=== PATIENT | female | born 1930 | race Hispanic/Latino ===

== ENCOUNTER 2018-01-02 08:33 | Emergency (ER) | payer MEDICARE, BC ==
--- NOTE | 2018-01-02 08:42 | ED PDOC ---
HPI: General Adult Time Seen by Provider: 01/02/18 08:37 History Per: Patient Onset/Duration Of Symptoms: Unknown Current Symptoms Are (Timing): Still Present Severity: Moderate Additional Complaint(s): Generalized weakness , found to have Hgb 7.5 as outpt. Denies melena, hematochezia or hematemesis. Denies fever. Past Medical History Vital Signs: Last Vital Signs Temp 98.3 F 01/02/18 08:40 Pulse 88 01/02/18 08:40 Resp 16 01/02/18 08:40 BP 138/78 01/02/18 08:40 Pulse Ox 99 01/02/18 08:40 - Medical History PMH: Anemia - Surgical History Surgical History: CABG - Family History Family History: States: Unknown Family Hx - Allergies Allergies/Adverse Reactions: Allergies Allergy/AdvReac Type Severity Reaction Status Date / Time Unobtainable Allergy Verified 01/02/18 08:38 Review of Systems ROS Statement: Except As Marked, All Systems Reviewed And Found Negative Physical Exam - Reviewed Nursing Documentation Reviewed: Yes Vital Signs Reviewed: Yes - Physical Exam Appears: Positive for: Non-toxic, No Acute Distress Head Exam: Positive for: ATRAUMATIC, NORMAL INSPECTION, NORMOCEPHALIC Skin: Positive for: Normal Color, Warm, DRY Eye Exam: Positive for: EOMI, Normal appearance, PERRL ENT: Positive for: Normal ENT Inspection Neck: Positive for: Normal, Painless ROM Cardiovascular/Chest: Positive for: Regular Rate, Rhythm Respiratory: Positive for: CNT, Normal Breath Sounds Gastrointestinal/Abdominal: Positive for: Normal Exam, Soft Back: Positive for: Normal Inspection Extremity: Positive for: Normal ROM Neurologic/Psych: Positive for: Alert, Oriented Disposition - Clinical Impression Clinical Impression: Anemia - Patient ED Disposition Is Patient to be Admitted: Yes - Disposition Disposition Time: 08:50 Condition: FAIR - Pt Status Changed To: Hospital Disposition Of: Inpatient - Admit Certification Admit to Inpatient:: After my assessment, the patient will require hospitalization for at least two midnights. This is because of the severity of symptoms shown, intensity of services needed, and/or the medical risk in this patient being treated as an outpatient. - POA Present On Arrival: None
--- NOTE | 2018-01-02 09:25 | RAD ---
HISTORY: Anemia COMPARISON: 01/16/2011 TECHNIQUE: Chest PA and lateral FINDINGS: LUNGS: No active pulmonary disease. PLEURA: No significant pleural effusion identified. No pneumothorax apparent. CARDIOVASCULAR: Normal heart size. Sternotomy wires. No congestive change. OSSEOUS STRUCTURES: No significant abnormalities. VISUALIZED UPPER ABDOMEN: Normal. OTHER FINDINGS: None. IMPRESSION: No active disease.
[2018-01-02 09:37] LABS: BASO # 0.1 K/uL (0.0-0.2); EOS # 0.5 K/uL (0.0-0.7); HEMOGLOBIN 7.5 g/dL (12.0-16.0); LYMPH # 0.9 K/uL (1.0-4.3); MEAN CELL VOLUME 73.4 fl (81.0-99.0); MEAN CORPUSCULAR HEMOGLOBIN 23.1 pg (27.0-31.0); MEAN CORPUSCULAR HGB CONC 31.5 g/dL (33.0-37.0); MEAN PLATELET VOLUME 6.5 fl (7.2-11.7); MONO # 0.4 K/uL (0.0-0.8); MONO % 7.2 % (0.0-10.0); NEUT # 3.7 K/uL (1.8-7.0); NEUT % 65.8 % (50.0-75.0); RBC 3.26 Mil/uL (3.80-5.20); RED CELL DISTRIBUTION WIDTH 17.8 % (11.5-14.5); WHITE BLOOD COUNT 5.6 K/uL (4.8-10.8)
[2018-01-02 09:54] LABS: PROTHROMBIN TIME 12.2 Seconds (9.8-13.1)
[2018-01-02 09:55] LABS: INR 1.1 (0.9-1.2)
[2018-01-02 09:56] LABS: ALB/GLOB RATIO 1.3 (1.0-2.1); ALT/SGPT 20 U/L (9-52); AST/SGOT 24 U/L (14-36); BLOOD UREA NITROGEN 19 mg/dl (7-17); CALCIUM 9.2 mg/dL (8.4-10.2); GFR AFRICAN-AMERICAN > 60; GFR NON-AFRICAN AMERICAN 59
--- NOTE | 2018-01-02 10:50 | CARD ---
APPROVED REPORT EKG Measurement Heart [id number] <Conclusion> Normal sinus rhythm Left axis deviation Left bundle branch block Abnormal ECG
[2018-01-02] MEDS ORDERED: HCTZ/Losartan 12.5/50 Tab PO STA (11:13)
[2018-01-02 12:14] VITALS: O2SAT 98
[2018-01-02 15:49] VITALS: BP 120/78; PULSE 80; RESP 19; TEMP 97
[2018-01-03] MEDS ORDERED: Levothyroxine 25 MCG TAB PO SCH (06:30)
== END 2018-01-02 15:50 | disposition home or self-care (01) ==
LOC: H.ER 08:33 → H.ERHOLD 08:38 → UNDOADMIN 08:38 → H.ER 15:50
DX: D64.9 Anemia, unspecified (principal)
CPT/HCPCS: 36430; 71046; 80053; 85025; 85610; 86850; 86900; 86920; 93005; 99282; P9051

== ENCOUNTER 2018-01-14 09:11 | Observation (INO) | payer MEDICARE, BC ==
[2018-01-14 09:56] VITALS: BMI 29.7
[2018-01-14 10:30] LABS: BASO # 0.1 K/uL (0.0-0.2); BASO % 1.4 % (0.0-2.0); EOS # 0.5 K/uL (0.0-0.7); EOS % 8.4 % (0.0-4.0); HEMOGLOBIN 8.9 g/dL (12.0-16.0); LYMPH % 17.3 % (20.0-40.0); MEAN CELL VOLUME 73.4 fl (81.0-99.0); MEAN CORPUSCULAR HGB CONC 32.6 g/dL (33.0-37.0); MEAN PLATELET VOLUME 6.7 fl (7.2-11.7); MONO # 0.4 K/uL (0.0-0.8); MONO % 7.5 % (0.0-10.0); NEUT # 3.9 K/uL (1.8-7.0); NEUT % 65.4 % (50.0-75.0); NRBC % 0.1 % (0.0-0.0); RBC 3.71 Mil/uL (3.80-5.20); RED CELL DISTRIBUTION WIDTH 18.6 % (11.5-14.5); WHITE BLOOD COUNT 5.9 K/uL (4.8-10.8)
[2018-01-14 10:34] LABS: INR 1.1 (0.9-1.2); PROTHROMBIN TIME 12.2 Seconds (9.8-13.1)
[2018-01-14 10:35] LABS: PARTIAL THROMBOPLASTIN TIME 27.9 Seconds (25.6-37.1)
--- NOTE | 2018-01-14 10:42 | ED PDOC ---
HPI: General Adult Chief Complaint (Nursing): Chest Pain Chief Complaint (Provider): Chest Pain History Per: Patient History/Exam Limitations: no limitations Onset/Duration Of Symptoms: Hrs Current Symptoms Are (Timing): Still Present Additional Complaint(s): 87 year old female arrived to ED from [facility] to receive bone marrow aspiration procedure for unexplained anemia and subsequently developed light headedness and felt like she would pass-out but did not. Patient also developed right arm, right-sided neck and chest discomfort. Shortness of breath was noted too. pt denied left arm pain. pt denied LOC pt denied fever/nausea/vomiting/cough/chills/sweats pt denied palpitations/abdominal pain/numbness/tingling pt denied fall/trauma/sick contact, no traveling clerk is here for further eval pt's without other complaints PCP: Dr. Kentrell Ramos (billing spec), Dr. Bulmaro Ramos (communications agent), Dr. Valdivia ([place], [place]) pt lives with daughter Past Medical History Reviewed: Historical Data, Nursing Documentation, Vital Signs Vital Signs: Last Vital Signs Temp 98.1 F 01/14/18 15:46 Pulse 67 01/14/18 15:46 Resp 21 01/14/18 15:46 BP 112/56 L 01/14/18 15:46 Pulse Ox 100 01/14/18 16:21 - Medical History PMH: Anemia, Cardia Arrhythmia, HTN, Hypercholesterolemia, Hyperlipidemia, Hypothyroidism - Surgical History Surgical History: CABG (x 5), Coronary Stent (x 4) - Family History Family History: States: Unknown Family Hx - Social History Current smoker - smoking cessation education provided: No Alcohol: None Drugs: Denies - Immunization History Hx Tetanus Toxoid Vaccination: No Hx Influenza Vaccination: No Hx Pneumococcal Vaccination: No - Home Medications Home Medications: Ambulatory Orders Medication Instructions Recorded Aspirin [Aspirin EC] 325 mg PO DAILY 01/02/18 Atorvastatin [Lipitor] 40 mg PO HS 01/02/18 Carvedilol [Coreg] 3.125 mg PO DAILY 01/02/18 Levothyroxine [Synthroid] 25 mcg PO DAILY 01/02/18 Losartan/Hydrochlorothiazide 1 tab PO DAILY 01/02/18 [Losartan-Hctz 50-12.5 mg Tab] Ascorbic Acid [Vitamin C 500 mg 500 mg PO DAILY 01/14/18 Tab] Cholecalciferol (Vitamin D3) 2,000 unit PO DAILY 01/14/18 [Vitamin D3] Furosemide [Lasix] 20 mg PO DAILY PRN 01/14/18 Vitamin B Complex [Super B-50 1 cap PO DAILY 01/14/18 Complex] - Allergies Allergies/Adverse Reactions: Allergies Allergy/AdvReac Type Severity Reaction Status Date / Time Penicillins Allergy RASH Verified 01/14/18 09:56 Review of Systems ROS Statement: Except As Marked, All Systems Reviewed And Found Negative Constitutional: Negative for: Fever, Chills, Sweats Cardiovascular: Positive for: Chest Pain. Negative for: Palpitations Respiratory: Positive for: Shortness of Breath Gastrointestinal: Negative for: Nausea, Vomiting, Abdominal Pain Musculoskeletal: Positive for: Neck Pain (right-side), Arm Pain (right) Neurological: Positive for: Other (light headedness, syncope, no LOC). Negative for: Numbness Physical Exam - Reviewed Nursing Documentation Reviewed: Yes Vital Signs Reviewed: Yes - Physical Exam Appears: Positive for: Well (alert/awake, GCS = 15, oriented x 3, resting in bed , cooperative, NAD, comfortable appearing), Non-toxic, No Acute Distress Head Exam: Positive for: ATRAUMATIC, NORMAL INSPECTION, NORMOCEPHALIC Skin: Positive for: Normal Color (cap refill < 1sec, no ulcerations, no petechiae, no rashes, mild pallor), Warm, Dry. Negative for: Rash Eye Exam: Positive for: Normal appearance, EOMI, PERRL. Negative for: Nystagmus ENT: Positive for: Normal ENT Inspection Neck: Positive for: Normal, Painless ROM, Supple, Trachea Midline Cardiovascular/Chest: Positive for: Regular Rate, Rhythm, Chest Non Tender, Other (+S1, +S2, no m/r/r) Respiratory: Positive for: Normal Breath Sounds, Other (CTA b/l, no w/r/r) Gastrointestinal/Abdominal: Positive for: Normal Exam, Bowel Sounds, Soft, Other (well nourished female, no focal tenderness, no masses/rebound/guarding/ rigidity) Back: Positive for: Normal Inspection. Negative for: Vertebral Tenderness Extremity: Positive for: Normal ROM, Other (strength + 5/5 intact b/l; neurovasc intact b/l, + ambulatory) Neurologic/Psych: Positive for: Alert, vice president corporate communications II-XII, Oriented (x3), Other (NIH stroke scale ~ 0, no facial asymmetries, no slurr speech) - Laboratory Results Result Diagrams: 01/14/18 10:18 01/14/18 10:18 Interpretation Of Abn Labs: chronic anemia - ECG ECG: Positive for: Interpreted By Me, Viewed By Me Interpretation Of Abn EKG: NSR at 75 bpm, LAD, no ectopy, LBBB, inverted T in leads R/L, no st changes, ABNL EKG; unchanged compare with old ekg 12/2017 O2 Sat by Pulse Oximetry: 100 (RA) Pulse Ox Interpretation: Normal - Radiology X-Ray: Interpreted by Me, Viewed By Me, Read By Radiologist - Progress ED Course And Treament: Time: 1025 Nurse made me aware that the pt refused CT head. Will continue to monitor pt in ED. Time: 1130 Dr. Ramos evaluated pt and recommends pt does not require hospitalization but to continue to evaluate the pt. 1230pm - pt remained comfortable pt is currently eating her meal, NAD pt is awaiting 2nd trop pt is made aware of my concern, pt's daughter is now at her bedside who also expressed concern for patient 230pm - pt remained comfortable pt has decided with daughter that she would be ok to be observed and be admitted overnight to the hospital 4:00pm - i spoke to Dr Ramos, who is made aware of pt's 2nd trop and its indeterminant value, and reluctantly agree to observe/keep patient overnight for further eval. pt is currently chest pain free vital signs WNL pt/daughter are made aware of pt's medical results agrees with admission/observation Time: 1128 HISTORY: near syncope COMPARISON: 01/02/2018. TECHNIQUE: Chest PA and lateral FINDINGS: LUNGS: No active pulmonary disease. PLEURA: No significant pleural effusion identified. No pneumothorax apparent. CARDIOVASCULAR: No radiographic findings to suggest acute or significant cardiovascular disease. OSSEOUS STRUCTURES: No significant abnormalities. Subluxed right shoulder unchanged. VISUALIZED UPPER ABDOMEN: Normal. OTHER FINDINGS: None. IMPRESSION: No active disease. No significant interval change compared to the prior examination(s). Re-evaluation Time: 12:51 Condition: Re-examined, Improved Medical Decision Making Medical Decision Making: Time: 957 Impression: chest pain, near syncope Differential Diagnosis: I have consider all the differential diagnosis regarding pt's chief medical complaints/clinical findings, including but are not limited to: near syncope, atypical chest pain Plan: - Head w/o Contrast [CT] - EKG - B-Type Natriuretic Peptide - CMP - Magnesium - Phosphorous - Thyroid Stimulating Hormone - Troponin I - CBC w/ Differential - PTT - Prothrombin Time - Chest Two Views (PA/LAT) [RAD] - IV Insertion - Orthostatic BP - Urinalysis Scribe Attestation: Documented by Kylie Olivo, acting as a scribe for Caleb Joe MD Provider Scribe Attestation: All medical record entries made by the Scribe were at my direction and personally dictated by me. I have reviewed the chart and agree that the record accurately reflects my personal performance of the history, physical exam, medical decision making, and the department course for this patient. I have also personally directed, reviewed, and agree with the discharge instructions and disposition. Disposition - Clinical Impression Clinical Impression: Near syncope, Anemia, Atypical chest pain - Patient ED Disposition Is Patient to be Admitted: Yes Discussed With : Danyel Ramos Doctor Will See Patient In The: Hospital Counseled Patient/Family Regarding: Studies Performed, Diagnosis, Need For Followup, Rx Given - Disposition Disposition Time: 16:00 Condition: STABLE Forms: [employer] (Uzbek) Print Language: RWANDAN - Pt Status Changed To: Hospital Disposition Of: Observation
[2018-01-14 10:48] LABS: ALB/GLOB RATIO 1.3 (1.0-2.1); ALBUMIN 3.9 g/dL (3.5-5.0); ALT/SGPT 20 U/L (9-52); AST/SGOT 30 U/L (14-36); BLOOD UREA NITROGEN 18 mg/dl (7-17); CALCIUM 9.1 mg/dL (8.4-10.2); GFR AFRICAN-AMERICAN > 60; GFR NON-AFRICAN AMERICAN > 60
[2018-01-14 10:49] LABS: SQUAMOUS EPITHIAL < 1 /hpf (0-5); URINE BILIRUBIN NEGATIVE (NEGATIVE); URINE BLOOD NEGATIVE (NEGATIVE); URINE CLARITY CLEAR (Clear); URINE COLOR YELLOW (YELLOW); URINE GLUCOSE (UA) NEG (Normal); URINE LEUKOCYTE ESTERASE NEG Leu/uL (Negative); URINE PROTEIN NEGATIVE (NEGATIVE); URINE UROBILINOGEN 0.2-1.0 mg/dL (0.2-1.0)
[2018-01-14 10:56] LABS: B-TYPE NATRIURETIC PEPTIDE 901 pg/ml (0-900)
--- NOTE | 2018-01-14 11:29 | RAD ---
Date of service: 01/14/2018 HISTORY: near syncope COMPARISON: 01/02/2018. TECHNIQUE: Chest PA and lateral FINDINGS: LUNGS: No active pulmonary disease. PLEURA: No significant pleural effusion identified. No pneumothorax apparent. CARDIOVASCULAR: No radiographic findings to suggest acute or significant cardiovascular disease. OSSEOUS STRUCTURES: No significant abnormalities. Subluxed right shoulder unchanged. VISUALIZED UPPER ABDOMEN: Normal. OTHER FINDINGS: None. IMPRESSION: No active disease. No significant interval change compared to the prior examination(s).
--- NOTE | 2018-01-14 15:18 | CARD ---
APPROVED REPORT Date of service: 01/14/2018 EKG Measurement Heart [id number] <Conclusion> Normal sinus rhythm Left axis deviation left bundle branch block Abnormal ECG
[2018-01-15 05:09] VITALS: RESP 18
[2018-01-15] MEDS ORDERED: Levothyroxine 25 MCG TAB PO SCH (06:30)
[2018-01-15] MEDS ORDERED: Enoxaparin 40 mg Syringe SC SCH (09:00)
[2018-01-15] MEDS ORDERED: Aspirin 325 mg EC Tablets PO SCH (09:00)
[2018-01-15] MEDS ORDERED: HCTZ/Losartan 12.5/50 Tab PO SCH (09:00)
[2018-01-15] MEDS ORDERED: Cholecalciferol 1,000 INTLU TAB PO SCH (09:00)
[2018-01-15] MEDS ORDERED: Multivitamin Vitamin B Complex (Nephro-Vite) Tab PO SCH (09:00)
--- NOTE | 2018-01-15 10:18 | CARD ---
APPROVED REPORT Date of service: 01/15/2018 EXAM: Two-dimensional and M-mode echocardiogram with Doppler and color Doppler. Other Information Quality : AverageRhythm : NSR INDICATION Syncope Surgery/Intervention Status/Post Aortic Valve Replacement: Bioprosthetic CABG: Status/Post Intervention: Stent 2D DIMENSIONS IVSd1.43 (0.7-1.1cm)LVDd4.03 (3.9-5.9cm) PWd1.01 (0.7-1.1cm)IVSs1.17 (0.8-1.2cm) LVDs3.70 (2.5-4.0cm)FS (%) 8.1 % PWs1.19 (0.8-1.2cm) M-Mode DIMENSIONS Left Atrium (MM)4.53 (2.5-4.0cm)IVSd0.65 (0.7-1.1cm) Aortic Root3.15 (2.2-3.7cm) Aortic Valve AoV Peak Ysxbwazh014.4cm/sAoV VTI52.8cmAO Peak GR.25mmHg LVOT Peak Ultnnvhq028.9cm/Alexander Mean GR.13mmHg Mitral Valve MV E Lemxersh789.1cm/sMV DECEL ROTG727ifHM A Mvjfahkv750.9cm/s MV RYO76koS/A ratio0.9MVA (PHT)3.03cm2 TDI Medial E' Peak V5.30cm/sE/Lateral E'0.0E/Medial E'26.1 Pulmonary Valve PV Peak Ajumietb855.4cm/s LEFT VENTRICLE The left ventricle is normal size. There is normal left ventricular wall thickness. Left ventricle systolic function is normal. The Ejection Fraction is 60-65%. There is normal LV segmental wall motion. Transmitral Doppler flow pattern is Grade I-abnormal relaxation pattern. RIGHT VENTRICLE The right ventricle is normal size. There is normal right ventricular wall thickness. The right ventricular systolic function is normal. ATRIA The left atrium is mildly dilated. The right atrium size is normal. AORTIC VALVE Bioprosthesis functions normally at aortic position No aortic regurgitation is present. Trivial peak AO valve gradient of 22 mm Hg (mean 12mm Hg)present. MITRAL VALVE Mitral annular calcification is moderate. There is no evidence of mitral valve prolapse. There is no mitral valve stenosis. Mitral regurgitation is moderate. TRICUSPID VALVE The tricuspid valve is normal in structure. There is no tricuspid valve regurgitation noted. PULMONIC VALVE The pulmonary valve is normal in structure. There is no pulmonic valvular regurgitation. GREAT VESSELS The aortic root is normal in size. The IVC is normal in size and collapses >50% with inspiration. PERICARDIAL EFFUSION The pericardium appears normal. <Conclusion> The left ventricle is normal size. There is normal left ventricular wall thickness. There is normal LV segmental wall motion. Left ventricle systolic function is normal. The Ejection Fraction is 60-65%. Transmitral Doppler flow pattern is Grade I-abnormal relaxation pattern. Bioprosthesis functions normally at aortic position Trivial peak AO valve gradient of 22 mm Hg (mean 12mm Hg)present. Mitral regurgitation is moderate.
--- NOTE | 2018-01-15 10:31 | CP.PCM.HP ---
History of Present Illness - History of Present Illness History of Present Illness: This 87-year-old female, with stable coronary artery disease were required coronary bypass graft surgery and aortic valve replacement more than 13 years back was hospitalized after she had a syncopal episode while undergoing a bone marrow aspiration. The patient had recently developed worsening anemia in spite of correcting iron deficiency by oral iron administration over last year and a half. She finally required a blood transfusion last week and was scheduled to undergo a bone marrow aspiration fully evaluate her persistent worsening microcytic anemia. The patient developed a syncopal episode prior to actual aspiration of bone marrow right after she had received local anesthesia take. Her electrocardiogram and vital signs immediately following her recovery from the syncopal episode where fairly stable and the patient was observed in the emergency room. The emergency room physician felt that she should be observed overnight and accordingly she was hospitalized given her age her cardiac history and persistent anemia. The patient had never suffered a myocardial infarction or experienced any symptoms of congestive cardiac failure. Physical examination shows an elderly lady who indicates that she has had a comfortable night. Her telemetry showed steady sinus rhythm with rare premature ventricular beats. Her blood pressure was 122/70 mmHg. Her jugular venous pressure was not elevated and there was no edema over his lower extremity. Her mucous membranes are slightly pale but there was no cyanosis or clubbing. Her extremities were warm. A scar of sternotomy was evident. The first and second heart sounds were normal. A very brief ejection systolic murmur in the aortic area was detected the second heart sound was well preserved. There were no rales. Her abdomen was soft and liver and spleen are not palpable. Her electrocardiogram showed sinus rhythm with a left bundle branch block which has been identified on her EKG given earlier. Her troponin levels where 0.012 and 0.013 ng per DL. Her BUN/creatinine were 18 and 0.8 mg percent respectively her electrolytes were normal. Her TSH level was 1.48 units. Her hemoglobin and hematocrit where 8.9 g and 27.2% respectively with normal WBC and platelet count. Her echocardiogram done this morning showed preserved left ventricular systolic function with a well-functioning aortic bioprosthesis. Impression: Vasovagal episode in a patient with stable coronary artery disease and status post aortic valve replacement with persistent anemia and hypothyroidism. The patient has been observed overnight and her vital signs had remained stable her workup consisting of EKGs cardiac enzymes and echocardiograms show a stable cardiovascular system and the patient is being sent home with arrangements to get her bone marrow aspiration under IV sedation a week from now. Present on Admission - Present on Admission Any Indicators Present on Admission: No Past Patient History - Infectious Disease Hx of Infectious Diseases: None - Past Medical History & Family History Past Medical History?: Yes - Past Social History Smoking Status: Never Smoked - CARDIAC Hx Cardia Arrhythmia: Yes Hx Hypercholesterolemia: Yes Hx Hypertension: Yes - PULMONARY Hx Respiratory Disorders: Yes Hx Bronchitis: Yes - NEUROLOGICAL Hx Neurological Disorder: No - HEENT Hx Cataracts: Yes (bilateral) - RENAL Hx Chronic Kidney Disease: No - ENDOCRINE/METABOLIC Hx Hypothyroidism: Yes - HEMATOLOGICAL/ONCOLOGICAL Hx AIDS: No Hx Anemia: Yes Hx Blood Transfusions: Yes Hx Blood Transfusion Reaction: No Hx Human Immunodeficiency Virus (HIV): No - INTEGUMENTARY Hx Dermatological Problems: No - MUSCULOSKELETAL/RHEUMATOLOGICAL Hx Arthritis: Yes Hx Falls: No - GASTROINTESTINAL Hx Gastrointestinal Disorders: No - GENITOURINARY/GYNECOLOGICAL Hx Genitourinary Disorders: No - PSYCHIATRIC Hx Substance Use: No - SURGICAL HISTORY Hx Surgeries: Yes Hx Appendectomy: Yes Hx Cataract Extraction: Yes (bilateral) Hx Section: Yes (x 2) Hx Coronary Artery Bypass Graft: Yes (x 5) Hx Coronary Stent: Yes (x 4) Hx Tonsillectomy: Yes Hx Valve Replacement: Yes (aortic valve repl) - ANESTHESIA Hx Anesthesia: Yes Hx Anesthesia Reactions: No Hx Malignant Hyperthermia: No Meds Allergies/Adverse Reactions: Allergies Allergy/AdvReac Type Severity Reaction Status Date / Time Penicillins Allergy RASH Verified 01/14/18 09:56 Results - Vital Signs Recent Vital Signs: Last Vital Signs Temp 97.9 F 01/15/18 08:27 Pulse 73 01/15/18 09:52 Resp 18 01/15/18 08:27 BP 126/68 01/15/18 09:52 Pulse Ox 95 01/15/18 08:27 - Labs Result Diagrams: 01/14/18 10:18 01/14/18 10:18 Labs: Laboratory Results - last 24 hr 01/14/18 01/14/18 01/14/18 10:18 10:18 10:18 WBC 5.9 RBC 3.71 L Hgb 8.9 L Hct 27.2 L MCV 73.4 L MCH 24.0 L MCHC 32.6 L RDW 18.6 H Plt Count 189 MPV 6.7 L Neut % (Auto) 65.4 Lymph % (Auto) 17.3 L [place] % (Auto) 7.5 Eos % (Auto) 8.4 H Baso % (Auto) 1.4 Neut # (Auto) 3.9 Lymph # (Auto) 1.0 [place] # (Auto) 0.4 Eos # (Auto) 0.5 Baso # (Auto) 0.1 PT 12.2 INR 1.1 APTT 27.9 Sodium 139 Potassium 4.5 Chloride 102 Carbon Dioxide 26 Anion Gap 16 BUN 18 H Creatinine 0.8 Est GFR ( Amer) > 60 Est GFR (Non-Af Amer) > 60 Random Glucose 91 Calcium 9.1 Phosphorus 4.0 Magnesium 2.1 Total Bilirubin 0.5 AST 30 ALT 20 Alkaline Phosphatase 147 H Troponin I < 0.0120 NT-Pro-B Natriuret Pep 901 H Total Protein 6.9 Albumin 3.9 Globulin 3.0 Albumin/Globulin Ratio 1.3 TSH 3rd Generation 1.48 Urine Color Urine Clarity Urine pH Ur Specific [place] Urine Protein Urine Glucose (UA) Urine Ketones Urine Blood Urine Nitrate Urine Bilirubin Urine Urobilinogen Ur Leukocyte Esterase Urine RBC (Auto) Urine Microscopic WBC Ur Squamous Epith Cells 01/14/18 01/14/18 10:40 13:50 WBC RBC Hgb Hct MCV MCH MCHC RDW Plt Count MPV Neut % (Auto) Lymph % (Auto) [place] % (Auto) Eos % (Auto) Baso % (Auto) Neut # (Auto) Lymph # (Auto) [place] # (Auto) Eos # (Auto) Baso # (Auto) PT INR APTT Sodium Potassium Chloride Carbon Dioxide Anion Gap BUN Creatinine Est GFR ( Amer) Est GFR (Non-Af Amer) Random Glucose Calcium Phosphorus Magnesium Total Bilirubin AST ALT Alkaline Phosphatase Troponin I 0.0130 NT-Pro-B Natriuret Pep Total Protein Albumin Globulin Albumin/Globulin Ratio TSH 3rd Generation Urine Color Yellow Urine Clarity Clear Urine pH 6.0 Ur Specific [place] 1.009 Urine Protein Negative Urine Glucose (UA) Neg Urine Ketones Negative Urine Blood Negative Urine Nitrate Negative Urine Bilirubin Negative Urine Urobilinogen 0.2-1.0 Ur Leukocyte Esterase Neg Urine RBC (Auto) 1 Urine Microscopic WBC < 1 Ur Squamous Epith Cells < 1
[2018-01-15 12:09] VITALS: BP 112/71; PULSE 72; O2SAT 97
[2018-01-15 13:30] VITALS: TEMP 97.5
--- NOTE | 2018-01-16 15:24 | CARD ---
APPROVED REPORT Date of service: 01/15/2018 EKG Measurement Heart [id number] <Conclusion> Normal sinus rhythm Left axis deviation Left bundle branch block Abnormal ECG
== END 2018-01-15 13:46 | disposition home or self-care (01) ==
LOC: H.ER 09:11 → H.ERHOLD 16:10 → H.TEL 18:20
PROVIDERS: ADMIT Internal Medicine Cardiovascular Disease; ATTEND Internal Medicine Cardiovascular Disease
DX: R55 Syncope and collapse (principal); D50.9 Iron deficiency anemia, unspecified; E03.9 Hypothyroidism, unspecified; E78.00 Pure hypercholesterolemia, unspecified; E78.5 Hyperlipidemia, unspecified; I10 Essential (primary) hypertension; I25.10 Atherosclerotic heart disease of native coronary artery without angina pectoris; Z95.1 Presence of aortocoronary bypass graft; Z95.2 Presence of prosthetic heart valve; Z95.5 Presence of coronary angioplasty implant and graft; Z88.0 Allergy status to penicillin
CPT/HCPCS: 71046; 80053; 81003; 83735; 83880; 84100; 84443; 84484; 85025; 85610; 85730; 93005; 93306; 99285; G0378; J1650

== ENCOUNTER 2018-01-28 06:20 | Day surgery (SDC) | payer MEDICARE, BC ==
--- NOTE | 2018-01-28 07:37 | CP.SDSHP ---
Same Day Surgery H & P - History Proposed Procedure: bone marrow aspiration and biopsy - Previous Medical/Surgical History Cardiac: Hypertension, Valvular Heart Disease Pain: 2.Mild Pain Comments: pt has had chronic anemia,no improvement after iron . - Allergies Allergies: Allergies Penicillins Allergy (Verified 01/28/18 06:39) RASH - Physical Exam General Appearance: alert very nervous Vital Signs: Vital Signs 01/28/18 01/28/18 07:05 07:12 Temperature 98.3 F Pulse Rate 76 76 Respiratory 18 Rate Blood Pressure 158/71 H O2 Sat by Pulse 98 Oximetry Mental Status: Alert & Oriented x3 Neuro: WNL Heart: WNL Lungs: WNL GI: WNL - {Optional Preform as Required} Breast: WNL Abdomen: WNL Rectal: WNL Integument: WNL DESKTOP SPECIALIST: WNL : WNL Ortho: WNL ENT: WNL - Impression Impression: chronic anemia - Date & Time Date: 01/28/18 Time: 07:30 Short Stay Discharge - Short Stay Discharge Admitting Diagnosis/Reason for Visit: ANEMIA Disposition: HOME/ ROUTINE Referrals: John Joaquin MD [Primary Care Provider] -
[2018-01-28] MEDS ORDERED: Propofol 10 mg/ml Inj (20 ML) ONE (07:53)
[2018-01-28] MEDS ORDERED: Midazolam 2 MG/2 ML VIAL ONE (07:54)
[2018-01-28] MEDS ORDERED: Lactated Ringer's 1,000 ML IV ONE (08:00)
[2018-01-28] MEDS ORDERED: Lidocaine 1% MPF (30 ml) Inj INJ ONE (08:20)
[2018-01-28] MEDS ORDERED: Lactated Ringer's 500 ML IV ONE (08:34)
[2018-01-28] MEDS ORDERED: Lactated Ringer's 500 ML IV SCH (08:45)
[2018-01-28 10:21] VITALS: RESP 18
[2018-01-28 11:42] VITALS: BP 121/50; PULSE 84; TEMP 98; O2SAT 99
--- NOTE | 2018-02-04 12:46 | PROCN ---
DATE OF PROCEDURE: 01/28/2018 SURGEON: Issac Evans MD TALENT SOURCER: None ANESTHESIOLOGIST: Enio Lopez MD ANESTHESIA: Local IV Sedation PRE OP DIAGNOSIS: Chronic anemia POST OP DIAGNOSIS: Same PROCEDURE: Bone Marrow Aspiration and Biopsy BLOOD LOSS: 5 cc DRAINS: None COMPLICATIONS: None DESCRIPTION OF PROCEDURE: Bone marrow was done from the right iliac crest under conscious sedation and local anesthesia. Pt had signed a consent fot the same. She tolerated the procedure well. I took 4 cc marrow aspirate for flow cytometry and cytogenetics..The bone marrow was normocellular with adequate megakaryocytes. the M:E ratio was 2.5:1. No increase in immature cells seen., no blasts, no dysplastic WBC seen. Iron trace. Impression; Seems to be anemia of chronic disease, with slightly low iron. Plan; Will give po iron.and monitor CBC MTDD
== END 2018-01-28 12:00 | disposition home or self-care (01) ==
LOC: H.OPSURG 06:20
PROVIDERS: ATTEND Specialist
DX: D50.8 Other iron deficiency anemias (principal); D63.8 Anemia in other chronic diseases classified elsewhere; I10 Essential (primary) hypertension; Z88.0 Allergy status to penicillin
CPT/HCPCS: 38221; 88305; 88311; 88313; J2001; J2250; J2704; J3010; J7120